=== PATIENT | male | born 1960 | race Two or more races ===

== ENCOUNTER 2022-07-23 16:16 | Emergency (ER) | payer OTHER ==
[~2022-07-23] VITALS: Ht 175.3 cm; Wt 83.9 kg
[2022-07-23] MEDS ORDERED: SYNTHROID50 MCG PO (16:39)
[2022-07-23] MEDS ORDERED: RAYOS5 MG PO (16:39)
== END 2022-07-23 20:56 | disposition home or self-care (01) ==
LOC: ER 16:16
DX: I95.9 Hypotension, unspecified (principal); R42 Dizziness and giddiness

== ENCOUNTER 2023-08-21 17:16 | Emergency (ER) | payer OTHER ==
[~2023-08-21] VITALS: Ht 165.1 cm; Wt 74.8 kg
[~2023-08-21 17:16] MED LIST: RAYOS5 MG PO; SYNTHROID50 MCG PO
[2023-08-21] MEDS ORDERED: LACTULOSE 20 G/30 ML BLIST.PACK PO ONE (18:15)
[2023-08-21] MEDS ORDERED: MINERAL OIL 30 ML BLIST.PACK PO ONE (18:15)
[2023-08-21 18:31] LABS: HEMATOCRIT 34.7 % (39.0-48.0); HEMOGLOBIN 12.3 g/dL (13-16.00); MEAN CELL VOLUME 84.6 fL (80.0-100.00); MEAN CORPUSCULAR HEMOGLOBIN 29.9 pg (27.00-32.0); MEAN CORPUSCULAR HGB CONC 35.3 g/dl (32.0-36.0); PLATELET COUNT 211 K/uL (150-450); RED CELL DISTRIBUTION WIDTH 14.5 % (11.5-14.5)
[2023-08-21 19:05] LABS: ALBUMIN 3.4 gm/dL (3.4-5.0); ALKALINE PHOSPHATASE 71 U/L (50-136); ANION GAP 11 (10.0-20.0); AST/SGOT 73 U/L (15-37); BILIRUBIN TOTAL 0.51 mg/dL (0.3-1.2); CALCIUM 8.5 mg/dL (8.5-10.1); CARBON DIOXIDE 23 mEq/L (21-32); CHLORIDE 113 mmol/L (98-107); CREATININE SERUM 1.28 mg/dL (0.70-1.30); GFR 56.58; GLUCOSE FASTING 120 mg/dL (65-100); LIPASE 33 U/L (13-75); POTASSIUM 3.51 mEq/L (3.5-5.1); SODIUM 143 mmol/L (136-145)
[2023-08-21 19:37] LABS: ALT/SGPT 49 U/L (12-78); BILIRUBIN,CONJUGATED < 0.10 mg/dL (0.0-0.2); BILIRUBIN,UNCONJUGATED 0.41 mg/dL (0.0-0.6); BLOOD UREA NITROGEN 16 mg/dL (7-18); BUN CREA RATIO 13 (7.0-25.0); GLOBULINA 3.6 G/DL (2.4-3.5); OSMOLALITY SERUM 287 MOSM/KG (275-295)
== END 2023-08-21 22:08 | disposition home or self-care (01) ==
LOC: ER 17:16
PROVIDERS: Emergency Medicine
DX: K59.00 Constipation, unspecified (principal)

== ENCOUNTER 2023-09-14 18:10 | Emergency (ER) | payer OTHER ==
[~2023-09-14] VITALS: Ht 175.3 cm; Wt 81.2 kg
[2023-09-14] MEDS ORDERED: MILLIPRED5 MG (19:03)
[2023-09-14] MEDS ORDERED: LAXATIVE5 MG PO (19:04)
[2023-09-14] MEDS ORDERED: CAMBIA50 MG (19:04)
[2023-09-14] MEDS ORDERED: METHYLPREDNISOLONE SOD SUCC 125 MG VIAL IM STA (20:33)
== END 2023-09-14 20:46 | disposition home or self-care (01) ==
LOC: ER 18:10
DX: M25.50 Pain in unspecified joint (principal)

== ENCOUNTER 2023-10-27 15:05 | Emergency (ER) | payer OTHER ==
[~2023-10-27] VITALS: Ht 172.7 cm; Wt 95.3 kg
[~2023-10-27 15:05] MED LIST changes: +CAMBIA50 MG; +LAXATIVE5 MG PO; +MILLIPRED5 MG
[2023-10-27 18:03] LABS: ERYTHROCYTE SEDIMENTATION RATE 8 mm/hr; HEMATOCRIT 34.5 % (39.0-48.0); HEMOGLOBIN 11.9 g/dL (13-16.00); MEAN CORPUSCULAR HEMOGLOBIN 28.9 pg (27.00-32.0); MEAN CORPUSCULAR HGB CONC 34.4 g/dl (32.0-36.0); PLATELET COUNT 203 K/uL (150-450); RED CELL DISTRIBUTION WIDTH 14.9 % (11.5-14.5)
[2023-10-27 18:16] LABS: PH,URINE 8.5 (5.0-8.0); URINE APPEARANCE Clear; URINE BILIRRUBIN Negative (NEGATIVE); URINE BLOOD Negative; URINE COLOR Yellow; URINE GLUCOSE Negative (NEGATIVE); URINE LEUKOCYTE Negative; URINE NITRATE Negative; URINE PROTEIN Negative (NEGATIVE)
[2023-10-27 18:23] LABS: URINE BACTERIA 0 uL (0.0-1933); URINE WBC 0.7 uL (0.0-23.2)
[2023-10-27 18:26] LABS: ALBUMIN 3.5 gm/dL (3.4-5.0); BILIRUBIN TOTAL 0.53 mg/dL (0.3-1.2); CALCIUM 9.2 mg/dL (8.5-10.1); CREATININE SERUM 1.41 mg/dL (0.70-1.30); GFR 50.6; GLOBULINA 3.8 G/DL (2.4-3.5); POTASSIUM 3.92 mEq/L (3.5-5.1); TOTAL PROTEIN 7.3 gm/dL (6.4-8.2)
[2023-10-27 18:49] LABS: C-REACTIVE PROTEIN 0.46 MG/DL (0.00-0.29)
== END 2023-10-27 22:27 | disposition home or self-care (01) ==
LOC: ER 15:05
PROVIDERS: Emergency Medicine
DX: E11.9 Type 2 diabetes mellitus without complications (principal); N28.9 Disorder of kidney and ureter, unspecified; K76.9 Liver disease, unspecified

== ENCOUNTER 2024-01-19 08:53 | Outpatient (CLI) | payer OTHER | END 2024-01-19 09:08 | disposition home or self-care (01) | LOC: MRI 08:53 | DX: D35.2 Benign neoplasm of pituitary gland (principal) | CPT/HCPCS: 70553 ==

== ENCOUNTER 2024-03-15 00:50 | Emergency (ER) | payer OTHER ==
[~2024-03-15] VITALS: Ht 167.6 cm; Wt 76.7 kg
[2024-03-15] MEDS ORDERED: KETOROLAC TROMETHAMINE 60 MG VIAL IM STA (02:24)
[2024-03-15] MEDS ORDERED: DEXAMETHASONE SODIUM PHOSPHATE 4 MG/ML VIAL IM STA (02:24)
[2024-03-15] MEDS ORDERED: ACETAMINOPHEN WITH CODEINE 1 UDTAB TABLET PO STA (02:25)
== END 2024-03-15 02:58 | disposition home or self-care (01) ==
LOC: ER 00:50
DX: M13.0 Polyarthritis, unspecified (principal); R11.10 Vomiting, unspecified; I10 Essential (primary) hypertension

== ENCOUNTER 2024-08-10 08:45 | Outpatient (CLI) | payer OTHER | END 2024-08-10 08:47 | disposition home or self-care (01) | LOC: RAD 08:45 | PROVIDERS: ATTEND General Practice | DX: M25.541 Pain in joints of right hand (principal); M25.542 Pain in joints of left hand; M54.50 Low back pain, unspecified; M62.830 Muscle spasm of back ==

== ENCOUNTER 2024-08-31 07:04 | Outpatient (CLI) | payer OTHER | END 2024-08-31 07:08 | disposition home or self-care (01) | LOC: RAD 07:04 | PROVIDERS: ATTEND General Practice | DX: M25.562 Pain in left knee (principal); M25.561 Pain in right knee ==

== ENCOUNTER 2025-02-02 14:21 | Outpatient (CLI) | payer OTHER | END 2025-02-02 14:23 | disposition home or self-care (01) | LOC: RAD 14:21 | DX: M25.551 Pain in right hip (principal); M25.552 Pain in left hip ==

== ENCOUNTER 2025-04-12 12:58 | Outpatient (CLI) | payer OTHER | END 2025-04-12 13:04 | disposition home or self-care (01) | LOC: RAD 12:58 | DX: M25.552 Pain in left hip (principal); M25.551 Pain in right hip ==